=== PATIENT | male | born 1990 | race Caucasian/White ===

== ENCOUNTER → 2016-05-29 | Outpatient (CLI) | payer OTHER, MEDICAID ==
[2016-05-29 13:42] LABS: FREE T3 2.86 PG/ML (2.18-3.98); FREE T4 1.07 NG/DL (0.76-1.46)
== END ==
LOC: CLAB 12:44
PROVIDERS: ATTEND Hospitalist
DX: R53.83 Other fatigue (principal); R42 Dizziness and giddiness
CPT/HCPCS: 36415; 84439; 84443; 84481